=== PATIENT | female | born 1965 | race African-American/Black ===

== ENCOUNTER 2024-12-09 06:13 | Day surgery (SDC) | payer OTHER, SELFPAY ==
[2024-12-09 09:45] VITALS: BMI 38.5
[2024-12-09 09:50] VITALS: BP 114/66
[2024-12-09 10:05] VITALS: BMI 38.5
[2024-12-09 13:43] VITALS: BP 103/66
[2024-12-09 13:45] VITALS: BP 98/69
[2024-12-09 14:00] VITALS: BP 119/82
[2024-12-09 14:15] VITALS: BP 116/70
== END 2024-12-09 14:25 | disposition home or self-care (01) ==
LOC: SDS 06:13
PROVIDERS: ATTENDING PHYSICIAN Internal Medicine Gastroenterology
DX: C77.2 Secondary and unspecified malignant neoplasm of intra-abdominal lymph nodes (principal); K83.8 Other specified diseases of biliary tract; K86.89 Other specified diseases of pancreas; K31.5 Obstruction of duodenum; K76.9 Liver disease, unspecified; R59.0 Localized enlarged lymph nodes; R93.3 Abnormal findings on diagnostic imaging of other parts of digestive tract; Z85.3 Personal history of malignant neoplasm of breast; Z98.84 Bariatric surgery status
CPT/HCPCS: 43238; 88173; 88305; 88341; 88342; 88360